=== PATIENT | male | born 1980 | race Two or more races ===

== ENCOUNTER 2020-09-20 03:26 | Inpatient (IN) | payer OTHER ==
[~2020-09-20] VITALS: Ht 170.2 cm; Wt 107.5 kg
--- NOTE | 2020-09-20 03:53 | PHYS DOC ---
Adult General Chief Complaint Chief Complaint: COUGH HPI HPI Patient is an otherwise healthy 39-year-old male who presents with a chief complaint of Covid positive cough. Patient states he was diagnosed with Covid 1 week ago. States for the first couple of days he had a low-grade fever that went away at about day 2 or 3. States that since then he has been doing good up until the last day or so. States over the last day has had increased cough with a small amount of sputum production. States that just before coming into the emergency department he was coughing hard enough to cause him nausea and coughed up a little bit of blood. States that that was just one time. States it was during a coughing spell and did not throw up. Denies any hematemesis. States he is otherwise felt well, has been eating and drinking normally and making urine and stool normally. States he has been using eiaf-cuo-gvavvyw cold medications at home with moderate relief up until tonight. Denies headache, sore throat, chest pain, abdominal pain, nausea, vomiting. States he does feel a little out of breath especially when coughing. Review of Systems Review of Systems Review of systems otherwise negative except as noted in HPI. Physical Exam Physical Exam Constitutional: Well developed, well nourished, no acute distress, patient does appear that he does not feel well and has some diaphoresis when coughing HENT: Normocephalic, atraumatic, bilateral external ears normal, oropharynx moist, no oral exudates, nose normal. [] Eyes: conjunctiva normal, no discharge. [] Neck: Normal range of motion, no tenderness, supple, no stridor. [] Cardiovascular: Normal rate and rhythm on the monitor with no rub or murmur noted Lungs & Thorax: Patient is able to take deep breaths but has mild global rhonchi Abdomen: soft, no tenderness, no masses, no pulsatile masses. [] Skin: Warm, dry, no erythema, no rash. [] Back: No tenderness, Extremities: No tenderness, no cyanosis, ROM intact, no edema. [] Neurologic: Alert and oriented X 3, normal motor function, normal sensory function, no focal deficits noted. [] Psychologic: Affect normal, judgement normal, mood normal. [] EKG EKG [] Radiology/Procedures Radiology/Procedures [] Heart Score Risk Factors: Risk Factors: DM, Current or recent (<one month) smoker, HTN, HLP, family history of CAD, obesity. Risk Scores: Risk Factors: DM, Current or recent (<one month) smoker, HTN, HLP, family history of CAD, obesity. Course & Med Decision Making Course & Med Decision Making Patient is a 39-year-old male who presents with a chief complaint of increased cough, and sputum production with a little shortness of breath who was diagnosed Covid positive a week ago Vital signs notable for oxygen saturations at 87 while patient is coughing and approximately 93 while at rest with no cough. Patient does drop to 90-91 while speaking. Given cough medication. Laboratory analysis not concerning. Covid test pending although patient was Covid positive at a different facility last week and most probably still positive. CT with significant global consolidations. Blood cultures obtained. Broad- spectrum antibiotics given. Given steroids as patient is hypoxic and most likely suffering from Covid pneumonia. Discussed findings with patient and recommended admission for continued evaluation and treatment for his pneumonia. Patient grateful, verbalized understanding and agreed with plan of admission [] Dragon Disclaimer Dragon Disclaimer This electronic medical record was generated, in whole or in part, using a voice recognition dictation system. Departure Departure: Impression: Primary Impression: Pneumonia Additional Impressions: Hypoxia Hemoptysis Disposition: ADMITTED INPT THIS HOSP Admitting Physician: Katelynn Hirsch Condition: STABLE Problem Qualifiers CHIN ROD MD Sep 20, 2020 03:53
[2020-09-20] MEDS ORDERED: PROMETH/CODEINE 6.25/10MG 5 ML SYRUP. PEG ONE (04:00)
[2020-09-20] MEDS ORDERED: PROMETH/CODEINE 6.25/10MG 5 ML SYRUP. ONE (04:23)
[2020-09-20 04:34] LABS: BASO % 1 % (0-3); EOS # 0.1 x10^3/uL (0.0-0.7); EOS % 2 % (0-3); HEMATOCRIT 42.4 % (39.0-53.0); HEMOGLOBIN 14.7 g/dL (13.0-17.5); LYMPH # 1.1 x10^3/uL (1.0-4.8); LYMPH % 18 % (24-48); MEAN CORPUSCULAR HEMOGLOBIN 31 pg (25-35); MEAN CORPUSCULAR HGB CONC 35 g/dL (31-37); MEAN CORPUSCULAR VOLUME 88 fL (79-100); MONO # 0.7 x10^3/uL (0.0-1.1); MONO % 11 % (0-9); NEUT # 4.3 x10^3uL (1.8-7.7); NEUT % 69 % (31-73); PLATELET COUNT 208 x10^3/uL (140-400); RED BLOOD COUNT 4.81 x10^6/uL (4.30-5.70); WHITE BLOOD COUNT 6.2 x10^3/uL (4.0-11.0)
[2020-09-20 04:37] LABS: CALCIUM 8.8 mg/dL (8.5-10.1); CREATININE 1.2 mg/dL (0.7-1.3); GFR 67.1; POTASSIUM 3.9 mmol/L (3.5-5.1)
--- NOTE | 2020-09-20 04:54 | RAD ---
EXAM: CT Chest without IV contrast CLINICAL HISTORY: hypoxia, cough, congestion COMPARISON: None. TECHNIQUE: CT of the chest without intravenous contrast. Axial, coronal and sagittal reformatted imag es were generated. ---PQRS compliance statement - One or more of the following individualized dose reduction techniques were utilized for this study: 1. Automated exposure control 2. Adjustment of the mA and/or kV according to patient size 3. Use of iterative reconstruction technique--- FINDINGS: Lack of intravenous contrast limits evaluation of solid organs, vasculature, and lymph nodes. Chest: A left paratracheal lymph node measures 1.3 x 1 cm. A 1.2 x 1 cm precarinal lymph node is seen. No ax illary lymphadenopathy. Small hiatal hernia. Heart is not enlarged. No pericardial effusion. Thyroid is unremarkable. No pleural effusion or pneumothorax. Groundglass patchy nodular opacities bilaterally predominantly peripherally are seen. Small hiatal hernia. Visualized upper abdomen: Unremarkable Bones: No aggressive osseous lesion. Impression: Bilateral groundglass patchy and nodular opacities likely multifocal consolidative process such as pn eumonia. Small hiatal hernia. Electronically signed by: Anirudh Azul MD (09/20/2020 4:51 AM) JAYNA
[2020-09-20] MEDS ORDERED: DEXAMETHASONE 4 MG TABLET PO ONE (05:30)
--- NOTE | 2020-09-20 05:55 | NUR ---
ADMISSION: The patient, ALONZO BERGER, 39 y/o, M admitted by CLAUDIA BAIG MD, was given written information regarding hospital policies, unit procedures and contact persons. Pt arrived to room 122 via rney, accompanied by [facility] and ED staff. Pt amb from gurney to bed independently. A/Ox4. 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 Pt here for c/o coughing up blood and severe congestion with recent COVID+ swab 1 week ago. Pt placed in contact and airborne isolation per protocol. Discussed POC, pt V/U. Call light in reach. Valuables were checked and logged.
[2020-09-20 06:14] VITALS: BP 165/71
[2020-09-20] MEDS ORDERED: DEXT118L3 PO (06:40)
[2020-09-20 10:25] VITALS: BP 140/77
[2020-09-20] MEDS: ENOXAPARIN ** NOTE DOSE ** SYRINGE SQ SCH ×2 (13:30→20:24)
--- NOTE | 2020-09-20 13:43 | HP ---
ADMIT DATE: 09/20/2020 HISTORY OF PRESENT ILLNESS: The patient is a 39-year-old male patient who came to the Emergency Room complaining of cough with hemoptysis as well as low-grade fever. He apparently was diagnosed with COVID on 09/10/2020. He stated that he took his grandchildren back to [place] and his daughter was having some symptoms, initially tested negative, but subsequently, she was positive and she contacted him and he and his who were tested at the post and was found to be positive for COVID-19. They did rapid testing there according to him and he initially had low-grade fever and did very well up until the last few days and started having some cough with small amount of sputum just before coming. He has been having recurrent bouts of cough that caused him to be nauseous and coughed up a little bit of blood, it was just one time and it was during coughing spell, but did not throw up. Denied any hematemesis. He did have also some diarrhea. He is otherwise feeling well, has been eating and drinking normally and making urine and stool normally, has been using eszb-gyy-agectiv cold medication at home with moderate relief up until last night. Denies any headache, sore throat, chest pain, abdominal pain. He did have nausea, but no vomiting. He was evaluated extensively in the Emergency Room. His lab work showed his white cell count was normal as well as his platelets. Has mild hyponatremia, serum sodium 134, but otherwise all his lab work seemed to be within acceptable range. Has had a CT scan of the chest without contrast, which showed the patient has bilateral ground glass patchy and nodular opacities, likely multifocal consolidative process such as pneumonia and small hiatal hernia. He was treated with IV levofloxacin as well as dexamethasone. He was swabbed for COVID-19 and was admitted for inpatient treatment with IV antibiotic and dexamethasone and probably limited remdesivir. PAST MEDICAL HISTORY: Unremarkable. PAST SURGICAL HISTORY: Significant for right rotator cuff tear repair. ALLERGIES: ALLERGIC TO ATIVAN. MEDICATIONS: He is currently on no medication by prescription. He takes yxzx-orw-unprzpm medication. FAMILY HISTORY: He has one brother and one sister, both older and healthy. Father is alive at age of 68 and mother is alive at age of 69, both healthy. SOCIAL HISTORY: He is , has a son and a daughter. He never smoked, does not drink alcohol or use any recreational drugs. He works in the [employer]. REVIEW OF SYSTEMS: As per history of present illness. PHYSICAL EXAMINATION: GENERAL: When I examined him, he looked well and was clearly in no apparent respiratory distress. There was no pallor, jaundice, cyanosis or thyromegaly. No jugular venous distention. No lower limb edema. VITAL SIGNS: His heart rate was 98, blood pressure was 140/77, temperature was 98.1, respiratory rate was 26 and oxygen saturation was 90% on room air. HEAD, EYES, EARS, NOSE AND THROAT: Showed normocephalic, atraumatic. NECK: Supple. HEART: Normal first and second heart sounds. No gallop or murmur. CHEST: Clear to auscultation. No crepitation or rhonchi. ABDOMEN: Distended, soft, nontender. NEUROLOGIC: He is awake, alert, responding appropriately. All cranial nerves intact. EXTREMITIES: He moves extremities without difficulty, ambulates without assistance or assistive devices. LABORATORY DATA: His white cell count was 6200, hemoglobin 15, hematocrit 42, MCV 88 and platelet count 208,000 with normal manual differential. His chemistry showed a serum sodium 134, potassium 3.9, chloride 96, bicarbonate 29, anion gap of 9, BUN 11, creatinine was 1.2, estimated GFR was 67 mL per minute. His glucose 116. Lactic acid is 1.1 and calcium was 8.[address] scan of the chest without contrast showed left paratracheal lymph node measures 1.3 x 1 cm and 1.2 x 1 and precarinal lymph nodes seen. No axillary lymphadenopathy and a small hiatal hernia. The heart size is normal, no pericardial effusion. Thyroid unremarkable. No pleural effusion or pneumothorax. He has ground glass patchy nodular opacities bilaterally, predominantly peripherally are seen. Visualized upper abdomen is unremarkable and the bone showed no aggressive osseous lesion. ASSESSMENT AND PLAN: The patient was admitted with multifocal pneumonia, hypoxia, acute hypoxic respiratory failure, hemoptysis. The patient has driven for about 10:00 although it is from [place] to hear about a week ago. My plan is to do bilateral venous Doppler ultrasound. I will add also Lovenox for now and will continue with IV levofloxacin, IV dexamethasone and start him on 2 liters of oxygen and follow him closely. CLAUDIA BAIG MD DR: PAULINO/maddy JOB#: [id number] / [id number]
[2020-09-20 14:12] VITALS: BP 148/84
[2020-09-20 19:37] VITALS: BP 144/71
[2020-09-20] MEDS: PROMETH/CODEINE 6.25/10MG 5 ML SYRUP. PEG PRN (23:54)
[2020-09-21 05:41] VITALS: BP 142/87
[2020-09-21 06:08] LABS: HEMATOCRIT 44.4 % (39.0-53.0); HEMOGLOBIN 15.4 g/dL (13.0-17.5); RED BLOOD COUNT 5.03 x10^6/uL (4.30-5.70); WHITE BLOOD COUNT 7.8 x10^3/uL (4.0-11.0)
[2020-09-21 06:52] LABS: ALBUMIN 3.5 g/dL (3.4-5.0); ALBUMIN/GLOBULIN RATIO 0.8 (1.0-1.7); GFR 82.8; POTASSIUM 4.2 mmol/L (3.5-5.1); TOTAL BILIRUBIN 0.5 mg/dL (0.2-1.0); TOTAL PROTEIN 7.8 g/dL (6.4-8.2)
[2020-09-21] MEDS: ENOXAPARIN ** NOTE DOSE ** SYRINGE SQ SCH (07:57)
[2020-09-21] MEDS: DEXAMETHASONE SOD PHOS 4 MG/ML VIAL. IVP SCH (07:57)
[2020-09-21] MEDS: PROMETH/CODEINE 6.25/10MG 5 ML SYRUP. PEG PRN ×2 (09:51→19:38)
[2020-09-21 11:05] VITALS: BP 159/81
--- NOTE | 2020-09-21 13:22 | PN ---
DATE: 09/21/2020 SUBJECTIVE: The patient is resting, slightly propped up in bed, in no apparent distress. He continued to have recurrent bouts of cough with scanty whitish sputum. He has had no further episodes of hemoptysis. He denied any chest pain, denied any swelling of his legs. PHYSICAL EXAMINATION: GENERAL: When I examined him, he looked well and was clearly in no apparent respiratory distress. No pallor, jaundice, cyanosis, or thyromegaly. No jugular venous distention. No limb edema. VITAL SIGNS: His heart rate was 60, blood pressure was 142/87, temperature was 97.5, respiratory rate was 18, and oxygen saturation was 95% on 1 liter of oxygen. HEAD, EYES, EARS, NOSE, AND THROAT: Showed normocephalic, atraumatic. NECK: Supple. HEART: Showed normal first and second heart sounds. No gallop, rub or murmur. CHEST: Showed central trachea, equal bilateral expansion, air entry, vesicular sounds with bilateral crepitation posteriorly, more on the right than left. ABDOMEN: Soft, nontender. NEUROLOGIC: He was grossly intact. His intake and output are incompletely recorded. LABORATORY DATA: His lab work this morning showed a white cell count of 7800, hemoglobin 15, hematocrit 44, MCV 88, and platelet count 294,000. Serum sodium was 132, potassium 4.2, chloride 100, bicarbonate 22, anion gap of 10, BUN 13, creatinine 1, estimated GFR was 83 mL per minute, his glucose 126, calcium was 9. Total bilirubin, AST, ALT, and alkaline phosphatase were normal. Total protein 7.8, albumin was 3.5. His D-dimer was 0.70. ASSESSMENT: 1. Multifocal pneumonia, likely due to coronavirus pneumonia versus superimposed bacterial pneumonia. 2. Acute hypoxic respiratory failure. 3. Hemoptysis. PLAN: My plan is to continue with IV antibiotic. Continue with dexamethasone. Continue with Lovenox. He has had no further episode of hemoptysis and has no swelling of his legs. I will probably cut down his Lovenox to therapeutic dose, and if he has any further episode of hemoptysis, we will probably have to arrange for a CT angio of the chest. CLAUDIA BAIG MD DR: PAULINO/maddy JOB#: [id number] / [id number]
[2020-09-21 15:55] VITALS: BP 170/77
[2020-09-21 19:31] VITALS: BP 167/84
[2020-09-21] MEDS: LACTOBACILLUS RHAMNOSUS GG 1 CAPSULE. PO SCH (19:38)
--- NOTE | 2020-09-22 05:13 | NUR ---
Nursing note: Assumed care of pt at approx. 1900. Pt a&ox4, on 1L O2 via NC. Pt coughing, requested and given cough medication per orders as doc. Pt rested comfortably in bed for much of shift.
[2020-09-22 05:49] VITALS: BP 134/76
[2020-09-22] MEDS: ENOXAPARIN 40 MG/0.4 ML SYRINGE. SQ SCH (08:54)
[2020-09-22] MEDS: LACTOBACILLUS RHAMNOSUS GG 1 CAPSULE. PO SCH ×2 (08:54→19:13)
[2020-09-22] MEDS: DEXAMETHASONE SOD PHOS 4 MG/ML VIAL. IVP SCH (08:58)
--- NOTE | 2020-09-22 10:18 | PN ---
DATE: 09/22/2020 SUBJECTIVE: The patient is resting on the edge of bed, eating his breakfast comfortably, in no apparent distress. He continued to have cough with scanty whitish sputum. There are no further episodes of hemoptysis. Denied any chest pain. He is maintaining his oxygen saturation of 97% on room air. PHYSICAL EXAMINATION: GENERAL: When I examined him, he looked well and was clearly in no apparent respiratory distress. No pallor, jaundice, cyanosis or thyromegaly. No jugular venous distention. No limb edema. VITAL SIGNS: His heart rate was 52, blood pressure was 134/75, temperature was 97.8, respiratory rate was 14 and oxygen saturation was 97% on room air. HEAD, EYES, EARS, NOSE AND THROAT: Showed normocephalic, atraumatic. NECK: Supple. HEART: Normal first and second heart sounds with no gallop, rub or murmur. CHEST: Shows central trachea, equal bilateral expansion, air entry, vesicular sounds. I could not really appreciate any crepitation or rhonchi. ABDOMEN: Distended, soft, nontender. NEUROLOGIC: He was grossly intact. His intake was 1300, no output was recorded. LABORATORY DATA: As of yesterday, his white cell count was 7800; hemoglobin 15; hematocrit 44; MCV 88 and platelet count 294,000. His chemistry showed serum sodium of 132, potassium 4.2, chloride 100, bicarbonate 22, anion gap of 10, BUN 13, creatinine 1, estimated GFR was 83 mL per minute, his glucose 126, calcium was 9. Total bilirubin, AST, ALT, alkaline phosphatase were normal. Total protein 7.8, albumin was 3.5. His D-dimer was 0.7. His coronavirus PCR was detectable. His blood cultures showed no growth after 2 days. ASSESSMENT: 1. Multifocal pneumonia, likely to be coronavirus pneumonia versus superimposed bacterial pneumonia. 2. Acute hypoxic respiratory failure, resolving. 3. Hemoptysis, resolved. PLAN: To continue with IV antibiotic. Continue with dexamethasone. Continue with Lovenox. The patient has had no further episode of hemoptysis. No swelling of his legs. My plan is to evaluate him tomorrow and if remained stable, maintaining his oxygen saturation 96% on room air. We will discharge him home. CLAUDIA BAIG MD DR: PAULINO/maddy JOB#: [id number] / [id number]
[2020-09-22 11:04] VITALS: BP 149/72
[2020-09-22 15:33] VITALS: BP 157/68
[2020-09-22] MEDS: PROMETH/CODEINE 6.25/10MG 5 ML SYRUP. PEG PRN (19:12)
[2020-09-22 19:29] VITALS: BP 160/82
[2020-09-22 23:03] VITALS: BP 155/72
--- NOTE | 2020-09-23 03:56 | NUR ---
Nursing note: Pt c/o cough even after PRN cough syrup given. Pt cough did decrease during mid-end of shift.
[2020-09-23 05:14] VITALS: BP 132/76
[2020-09-23 07:30] LABS: BASO % 0 % (0-3); EOS % 0 % (0-3); HEMATOCRIT 44.2 % (39.0-53.0); HEMOGLOBIN 15.1 g/dL (13.0-17.5); LYMPH # 2.2 x10^3/uL (1.0-4.8); LYMPH % 18 % (24-48); MEAN CORPUSCULAR HEMOGLOBIN 30 pg (25-35); MEAN CORPUSCULAR HGB CONC 34 g/dL (31-37); MEAN CORPUSCULAR VOLUME 89 fL (79-100); MONO # 1.2 x10^3/uL (0.0-1.1); MONO % 11 % (0-9); NEUT # 8.3 x10^3uL (1.8-7.7); NEUT % 71 % (31-73); PLATELET COUNT 349 x10^3/uL (140-400); RED BLOOD COUNT 4.99 x10^6/uL (4.30-5.70); RED CELL DISTRIBUTION WIDTH 13.5 % (11.5-14.5); WHITE BLOOD COUNT 11.7 x10^3/uL (4.0-11.0)
[2020-09-23 07:44] LABS: ALBUMIN 3.1 g/dL (3.4-5.0); ALBUMIN/GLOBULIN RATIO 0.8 (1.0-1.7); CALCIUM 8.6 mg/dL (8.5-10.1); CREATININE 1.1 mg/dL (0.7-1.3); GFR 74.1; POTASSIUM 4.5 mmol/L (3.5-5.1); TOTAL BILIRUBIN 0.4 mg/dL (0.2-1.0); TOTAL PROTEIN 6.9 g/dL (6.4-8.2)
[2020-09-23] MEDS: PROMETH/CODEINE 6.25/10MG 5 ML SYRUP. PEG PRN (08:00)
[2020-09-23] MEDS: ENOXAPARIN 40 MG/0.4 ML SYRINGE. SQ SCH (08:00)
[2020-09-23] MEDS: LACTOBACILLUS RHAMNOSUS GG 1 CAPSULE. PO SCH (08:00)
[2020-09-23] MEDS: DEXAMETHASONE SOD PHOS 4 MG/ML VIAL. IVP SCH (08:00)
[2020-09-23 08:39] LABS: % ATYL 4 % (0-0); % LYMPHS 17 % (24-48); % MONOS 11 % (0-10); % MYELOS 4 % (0-0); % SEGS 64 % (35-66)
[2020-09-23 08:40] LABS: PLT ESTIMATE ADEQUATE (ADEQUATE)
[2020-09-23 11:36] VITALS: BP 131/64
--- NOTE | 2020-09-23 13:30 | NUR ---
PT'S IV'S WERE DISCOUNTED. BELONGINGS WERE SENT WITH PATIENT. PT SIGNED DISCHARGE PAPERWORK AND WAS WALKED OUT TO THE FRONT DOOR. PT IS DISCHARGED FROM THE HOSPITAL.
[2020-09-23] MEDS ORDERED: LEVO750T5 PO (14:14)
[2020-09-23] MEDS ORDERED: DEXA4TAB PO (14:14)
--- NOTE | 2020-09-23 14:35 | DS ---
DATE OF DISCHARGE: 09/23/2020 HOSPITAL COURSE: The patient is resting, almost flat in bed, in no apparent distress. Continues to have occasional episodes of mostly dry cough, feeling generally much improved. No shortness of breath. His oxygen saturation is 96% on room air. OBJECTIVE: GENERAL: When I examined him, he looked well and was clearly in no apparent respiratory distress. No pallor, jaundice, cyanosis, or thyromegaly. No jugular venous distention. No lower limb edema. VITAL SIGNS: His heart rate was 59, blood pressure was 131/64, temperature was 97.5, respiratory rate 20, and oxygen saturation was 96% on room air. HEAD, EYES, EARS, NOSE AND THROAT: Showed normocephalic, atraumatic. NECK: Supple. HEART: Showed normal first and second heart sounds. No gallop, rub, or murmur. CHEST: Clear to auscultation. No crepitation or rhonchi. ABDOMEN: Distended, soft, nontender. NEUROLOGIC: He was grossly intact. His intake over the last 24 hours was 1800, no output was recorded. LABORATORY DATA: This morning showed a white cell count of 11,700, hemoglobin 15, hematocrit 44, MCV 89, and platelet count 349,000 with normal manual differential. His chemistry showed a serum sodium 139, potassium 4.5, chloride 104, bicarbonate 29, anion gap of 6, BUN 18, creatinine 1.1, and estimated GFR was 74 mL per minute. His glucose was 87, calcium was 8.6. Total bilirubin and alkaline phosphatase were normal. AST and ALT slightly elevated. Total protein 6.9, albumin was 3.1. His D-dimer was 0.70. His coronavirus PCR was detectable. His blood cultures showed no growth after 3 days. DISCHARGE MEDICATIONS: He was discharged home to continue on Levaquin 750 mg once a day for 7 more days and dexamethasone 4 mg once a day for 3 days and then dexamethasone 2 mg once a day for 3 days. FINAL DISCHARGE DIAGNOSES: 1. Multifocal pneumonia, likely due to coronavirus pneumonia versus superimposed bacterial pneumonia. 2. Acute hypoxic respiratory failure, resolved. 3. Hemoptysis, resolved. CLAUDIA BAIG MD DR: PAULINO/maddy JOB#: [id number] / [id number]
== END 2020-09-23 15:30 | disposition home or self-care (01) | DRG 177 ==
LOC: ER 03:26 → 1 SOUTH 05:15
PROVIDERS: ADMIT Internal Medicine; ATTEND Internal Medicine
DX: U07.1 COVID-19 (principal); J12.82 Pneumonia due to coronavirus disease 2019; J96.01 Acute respiratory failure with hypoxia; J15.9 Unspecified bacterial pneumonia; E87.1 Hypo-osmolality and hyponatremia; R04.2 Hemoptysis; Z88.8 Allergy status to other drugs, medicaments and biological substances
CPT/HCPCS: 36415; 71250; 80048; 80053; 83605; 85007; 85025; 85027; 85379; 87040; J1100; J1650; J1956; J8540; U0003; 99285-25